=== PATIENT | male | born 1960 ===

== ENCOUNTER 2019-04-22 19:13 | Emergency (ER) | payer OTHER ==
[~2019-04-22] VITALS: Ht 167.6 cm; Wt 103.2 kg
[2019-04-22 19:34] VITALS: BP 154/80; TEMP 97.9
[2019-04-22 20:54] LABS: BASO % 0.4 % (0.0-2.0); EOS # 0.3 (0.0-0.7); EOS % 3.2 % (0-4.0); GRAN # 5.5 (1.4-6.5); GRAN % 67.6 % (42.2-75.2); HEMATOCRIT 45.8 % (42.0-52.0); HEMOGLOBIN 14.9 g/dl (13.5-18.0); LYMPH # 1.9 (1.2-3.4); LYMPH % 23.8 % (20.0-51.0); MEAN CELL VOLUME 85 fl (80.0-100.0); MEAN CORPUSCULAR HEMOGLOBIN 28 pg (27.0-31.0); MEAN CORPUSCULAR HGB CONC 33 g/dl (33.0-37.0); MEAN PLATELET VOLUME 10.9 fl (7.4-10.4); MONO # 0.4 (0.1-0.6); MONO % 4.8 % (1.7-9.3); PLATELET COUNT 241 K/mm3 (130-400); RED BLOOD COUNT 5.36 M/mm3 (4.20-5.60); REDCELL DISTRIBUTION WIDTH-CV 13.9 % (11.5-14.5)
[2019-04-22 21:07] LABS: ALANINE AMINOTRANSFERASE 46 U/L (21-72); ALBUMIN 4.2 gm/dL (3.5-5.0); ALKALINE PHOSPHATASE 99 U/L (50-136); ANION GAP 10 mmol/L (7-16); AST,SGOT 27 U/L (15-37); BILIRUBIN,TOTAL 0.4 mg/dL (0.0-1.0); BLOOD UREA NITROGEN 16 mg/dL (9-20); CALCIUM 9.7 mg/dL (8.4-10.2); CARBON DIOXIDE 34 mmol/L (22-30); CHLORIDE 102 mmol/L (98-107); CREATININE, serum 1.12 (0.66-1.25); GLUCOSE 170 mg/dL (74-106); LIPASE 614 U/L (23-300); POTASSIUM 4.2 mmol/L (3.4-5.0); SODIUM 146 mmol/L (137-145); TOTAL PROTEIN 7.4 gm/dL (6.4-8.2)
[2019-04-22 21:11] LABS: C-REACTIVE PROTEIN < 0.5 mg/dL (0.0-0.9)
[2019-04-22 21:16] LABS: TROPONIN-I < 0.012 ng/mL (0.000-0.035)
[2019-04-22 21:58] LABS: COLLECTION METHOD CLEAN CATCH
[2019-04-22 22:05] LABS: AMORPHOUS CRYSTAL Present /uL; MUCOUS Present /lpf; PH 8 (5-8); URINE APPEARANCE Turbid; URINE BACTERIA None Seen /hpf; URINE BILIRUBIN Negative (NEGATIVE); URINE BLOOD Negative (NEGATIVE); URINE COLOR Yellow; URINE GLUCOSE 2+ (NEGATIVE); URINE KETONE Trace (NEGATIVE); URINE LEUKOCYTE ESTERASE 2+ (NEGATIVE); URINE NITRATE Negative (NEGATIVE); URINE PROTEIN(semi-quant) 1+ (NEGATIVE); URINE RBC 20-50 /hpf; URINE UROBILINOGEN Negative (NEGATIVE)
[2019-04-22] MEDS ORDERED: NORCO 325 MG-51 TAB PO (22:24)
[2019-04-22] MEDS ORDERED: ZOFRAN 4MG T4 MG/TAB PO (22:24)
[2019-04-22] MEDS ORDERED: OMNICEF 300MG300 MG PO (22:24)
[2019-04-22 22:56] VITALS: PULSE 67
[2019-04-23] MEDS ORDERED: PERCOCET 325 MG1 TA2 PO (06:22)
== END 2019-04-22 22:56 | disposition home or self-care (01) ==
LOC: COL.ER 19:13
PROVIDERS: Emergency Medicine
DX: N39.0 Urinary tract infection, site not specified (principal); N12 Tubulo-interstitial nephritis, not specified as acute or chronic; M54.9 Dorsalgia, unspecified; J45.909 Unspecified asthma, uncomplicated
CPT/HCPCS: J0696; J1885; J2405; J3010; J7030; Q9967

== ENCOUNTER 2019-04-23 03:57 | Emergency (ER) | payer OTHER ==
[~2019-04-23 03:57] MED LIST: NORCO 325 MG-51 TAB PO; OMNICEF 300MG300 MG PO; ZOFRAN 4MG T4 MG/TAB PO
[2019-04-23 04:22] VITALS: TEMP 98.4
[2019-04-23 05:16] LABS: BASO % 0.3 % (0.0-2.0); EOS # 0.2 (0.0-0.7); EOS % 2.6 % (0-4.0); GRAN # 6.4 (1.4-6.5); HEMATOCRIT 45.1 % (42.0-52.0); HEMOGLOBIN 14.6 g/dl (13.5-18.0); LYMPH # 2.2 (1.2-3.4); LYMPH % 23.6 % (20.0-51.0); MEAN CELL VOLUME 87 fl (80.0-100.0); MEAN CORPUSCULAR HEMOGLOBIN 28 pg (27.0-31.0); MEAN CORPUSCULAR HGB CONC 32 g/dl (33.0-37.0); MEAN PLATELET VOLUME 10.9 fl (7.4-10.4); MONO # 0.5 (0.1-0.6); MONO % 5.2 % (1.7-9.3); PLATELET COUNT 239 K/mm3 (130-400); RED BLOOD COUNT 5.21 M/mm3 (4.20-5.60); REDCELL DISTRIBUTION WIDTH-CV 14.1 % (11.5-14.5)
[2019-04-23 05:27] LABS: ALANINE AMINOTRANSFERASE 41 U/L (21-72); ALBUMIN 4.1 gm/dL (3.5-5.0); ALKALINE PHOSPHATASE 89 U/L (50-136); ANION GAP 9 mmol/L (7-16); AST,SGOT 27 U/L (15-37); BILIRUBIN,TOTAL 0.4 mg/dL (0.0-1.0); BLOOD UREA NITROGEN 20 mg/dL (9-20); CALCIUM 8.9 mg/dL (8.4-10.2); CARBON DIOXIDE 31 mmol/L (22-30); CHLORIDE 102 mmol/L (98-107); CREATININE, serum 1.04 (0.66-1.25); GLUCOSE 140 mg/dL (74-106); POTASSIUM 4.4 mmol/L (3.4-5.0); SODIUM 142 mmol/L (137-145)
[2019-04-23 05:30] LABS: C-REACTIVE PROTEIN < 0.5 mg/dL (0.0-0.9)
[2019-04-23] MEDS ORDERED: PERCOCET 325 MG1 TA2 PO (06:22)
[2019-04-23 06:33] VITALS: BP 109/64; PULSE 66
== END 2019-04-23 06:45 | disposition home or self-care (01) ==
LOC: COL.ER 03:57
PROVIDERS: Emergency Medicine
DX: N15.9 Renal tubulo-interstitial disease, unspecified (principal); E11.9 Type 2 diabetes mellitus without complications; J45.909 Unspecified asthma, uncomplicated; F43.10 Post-traumatic stress disorder, unspecified
CPT/HCPCS: J1885; J2405; J3010; J7030

== ENCOUNTER 2020-04-01 03:54 | Emergency (ER) | payer MEDICARE ==
[~2020-04-01 03:54] MED LIST changes: +PERCOCET 325 MG1 TA2 PO
[2020-04-01 04:43] LABS: BASO % 0.3 % (0.0-2.0); EOS # 0.1 (0.0-0.7); EOS % 1.1 % (0-4.0); GRAN # 1.9 (1.4-6.5); GRAN % 24.6 % (42.2-75.2); HEMATOCRIT 42.9 % (42.0-52.0); LYMPH % 66.3 % (20.0-51.0); MEAN CELL VOLUME 95 fl (80.0-100.0); MEAN CORPUSCULAR HEMOGLOBIN 29 pg (27.0-31.0); MEAN CORPUSCULAR HGB CONC 30 g/dl (33.0-37.0); MEAN PLATELET VOLUME 11.5 fl (7.4-10.4); MONO # 0.3 (0.1-0.6); MONO % 3.3 % (1.7-9.3); PLATELET COUNT 196 K/mm3 (130-400); RED BLOOD COUNT 4.51 M/mm3 (4.20-5.60); REDCELL DISTRIBUTION WIDTH-CV 13.1 % (11.5-14.5)
[2020-04-01 04:48] LABS: INR 1.1 (0.8-3.0); PROTHROMBIN TIME 12.7 SECONDS (9.7-12.8)
[2020-04-01 04:50] LABS: PARTIAL THROMBOPLASTIN TIME 52.3 SECONDS (26.0-37.0)
[2020-04-01 04:52] LABS: ALBUMIN 3.1 gm/dL (3.5-5.0); ALKALINE PHOSPHATASE 75 U/L (50-136); ANION GAP 22 mmol/L (7-16); AST,SGOT 89 U/L (15-37); BILIRUBIN,TOTAL 0.3 mg/dL (0.0-1.0); BLOOD UREA NITROGEN 15 mg/dL (9-20); CALCIUM 8.7 mg/dL (8.4-10.2); CARBON DIOXIDE 23 mmol/L (22-30); CHLORIDE 97 mmol/L (98-107); CREATININE, serum 1.27 (0.66-1.25); MAGNESIUM 2.7 mg/dL (1.6-2.3); SODIUM 142 mmol/L (137-145); TOTAL PROTEIN 5.4 gm/dL (6.4-8.2)
[2020-04-01 04:58] LABS: GLUCOSE 401 mg/dL (74-106)
[2020-04-01 04:59] LABS: ALANINE AMINOTRANSFERASE 62 U/L (4-49)
[2020-04-01 05:05] LABS: TROPONIN-I < 0.012 ng/mL (0.000-0.035)
[2020-04-01 06:18] LABS: ARTERIAL BLD GAS O2 SATURATION 99.3 % (92-100); ARTERIAL BLD GAS TCO2 CT 33.9; ARTERIAL BLOOD GAS BASE EXCESS -10.6 (-2-2); ARTERIAL BLOOD GAS HCO3 28.2 meq/L (22-26)
[2020-04-01 06:19] LABS: ARTERIAL BLOOD GAS PCO2 183.5 mmHg (35-45); ARTERIAL BLOOD GAS PO2 319.1 mmHg (80-100); ARTERIAL BLOOD GAS pH 6.81 (7.35-7.45)
[2020-04-01 07:54] VITALS: BP 122/70; PULSE 104
== END 2020-04-01 07:45 | disposition short-term general hospital (02) ==
LOC: COL.ER 03:54
PROVIDERS: Emergency Medicine
DX: J96.00 Acute respiratory failure, unspecified whether with hypoxia or hypercapnia (principal); J45.902 Unspecified asthma with status asthmaticus; E11.9 Type 2 diabetes mellitus without complications
CPT/HCPCS: J0171; J0461; J2543; J2930; J3105; J3475; J3480; J7030; J7060